=== PATIENT | male | born 1955 | race Caucasian/White ===

== ENCOUNTER → 2017-07-25 | Outpatient (CLI) | payer OTHER ==
[~2017-07-25] MED LIST: FLOMAX0.4 MG PO; PERCOCET 5/31 TABLET PO; TORADOL10 MG PO; ZOFRAN4 MG PO
== END | disposition home or self-care (01) ==
LOC: CDC 10:18
DX: Z01.810 Encounter for preprocedural cardiovascular examination (principal); M65.862 Other synovitis and tenosynovitis, left lower leg; S83.232A Complex tear of medial meniscus, current injury, left knee, initial encounter
CPT/HCPCS: 93000